=== PATIENT | female | born 1990 | race Caucasian/White ===

== ENCOUNTER 2017-08-31 22:26 | Emergency (ER) | payer SELFPAY, OTHER ==
[2017-09-01] MEDS: IBUPROFEN 600 MG TAB PO (02:59)
== END 2017-09-01 05:13 | disposition home or self-care (01) ==
LOC: FTE 22:26
DX: S99.912A Unspecified injury of left ankle, initial encounter (principal); X58.XXXA Exposure to other specified factors, initial encounter; Y92.9 Unspecified place or not applicable
CPT/HCPCS: 73610; 73630-LT; 81025; 99283-25

== ENCOUNTER 2019-01-12 09:58 | Emergency (ER) | payer SELFPAY ==
[2019-01-12] MEDS: IBUPROFEN 800 MG TAB PO (10:26)
== END 2019-01-12 12:53 | disposition home or self-care (01) ==
LOC: FTE 09:58
DX: S50.12XA Contusion of left forearm, initial encounter (principal); V49.49XA Driver injured in collision with other motor vehicles in traffic accident, initial encounter
CPT/HCPCS: 73090; 99283-25

== ENCOUNTER 2019-02-09 19:01 | Emergency (ER) | payer SELFPAY ==
[2019-02-09] MEDS: IBUPROFEN 600 MG TAB PO (21:00)
[2019-02-09] MEDS: LIDOCAINE 4% CR TOP (21:05)
[2019-02-09] MEDS: MUPIROCIN 2% 22 GM OINT TOP (21:05)
== END 2019-02-09 21:27 | disposition home or self-care (01) ==
LOC: FTE 19:01
DX: L03.012 Cellulitis of left finger (principal)
CPT/HCPCS: 10060; 99283-25